=== PATIENT | female | born 1975 | race Caucasian/White ===

== ENCOUNTER 2018-08-02 11:08 | Outpatient (CLI) | payer OTHER | END 2018-08-02 11:26 | disposition home or self-care (01) | LOC: SONOGRAMA 11:08 → MAMO-SONO 14:45 | DX: N84.0 Polyp of corpus uteri (principal) ==

== ENCOUNTER 2021-04-15 07:59 | Emergency (ER) | payer OTHER ==
[~2021-04-15] VITALS: Ht 177.8 cm; Wt 63.5 kg
[2021-04-15] MEDS ORDERED: INTESTINEX680 M1 PO (11:35)
[2021-04-15] MEDS ORDERED: AMOX-CLAV 875-1 EAC1 PO (11:35)
[2021-04-15] MEDS ORDERED: KETO10TA2 PO (11:35)
== END 2021-04-15 12:09 ==
LOC: ER 07:59
DX: N75.1 Abscess of Bartholin's gland (principal)